=== PATIENT | female | born 1990 | race African-American/Black ===

== ENCOUNTER 2023-11-22 21:50 | Emergency (ER) | payer OTHER ==
[~2023-11-22] VITALS: Ht 152.4 cm; Wt 230.0 kg
[2023-11-22 21:55] VITALS: O2SAT 99
[2023-11-22] MEDS ORDERED: ACETAMINOPHEN 325MG TABLET PO ONE (22:30)
[2023-11-22] MEDS: ACETAMINOPHEN 325MG TABLET PO NR (23:22)
[2023-11-22] MEDS ORDERED: ACET-2708 MT (23:22)
[2023-11-22 23:50] VITALS: BP 145/79; PULSE 78; RESP 17; TEMP 97.2
== END 2023-11-23 00:19 | disposition home or self-care (01) ==
LOC: ER 21:50
DX: S09.90XA Unspecified injury of head, initial encounter (principal); M79.632 Pain in left forearm; M25.571 Pain in right ankle and joints of right foot; R07.89 Other chest pain; D64.9 Anemia, unspecified; J45.909 Unspecified asthma, uncomplicated; I10 Essential (primary) hypertension; V49.49XA Driver injured in collision with other motor vehicles in traffic accident, initial encounter; Y93.89 Activity, other specified; Y92.89 Other specified places as the place of occurrence of the external cause; Y99.8 Other external cause status
CPT/HCPCS: 71045; 73090; 73610; 99284